=== PATIENT | female | born 1945 | race Caucasian/White ===

== ENCOUNTER 2016-07-31 03:54 | Observation (INO) | payer OTHER ==
[2016-07-31] MEDS ORDERED: NITROGLYCERIN 0.4 MG BTL SL PRN ×2 (04:06→06:40)
[2016-07-31] MEDS ORDERED: ASPIRIN 81 MG CHEWABLE TAB PO ONE (04:06)
[2016-07-31] MEDS ORDERED: NS 500 ML IV ONE (04:06)
--- NOTE | 2016-07-31 04:06 | EDPHY ---
H & P Stated Complaint: CP started 1 hr ago was seen by PCP today HPI/ROS: HPI CHIEF COMPLAINT: Chest discomfort HISTORY OF PRESENT ILLNESS: This patient very pleasant 71-year-old female no known significant history of coronary artery disease however does have a family history of coronary artery disease, presents to the emergency room 415 in the morning with chest pain. It is since resolved since arrival. Patient tells me that she woke up around 1:00 a.m. to urinate could not get back to sleep she developed a dull ache in the center of her chest epigastric region did not radiate anywhere was very intense that last approximately 45 minutes. She felt nauseous with this and was very diaphoretic. She tried to vomit but was unable to do so she decided to go and he piece of bread and this did give her some relief however the pain return. Due to the nausea sweating and discomfort in chest she decided come the emergency room. Upon arrival here she denies any chest pain or shortness of breath. She denies hemoptysis, or blood in her stool. Patient does tell me that she saw her primary care doctor today and was diagnosed with a viral syndrome as she has been somewhat sick with a cough and cold symptoms however no fever. She was given codeine cough medicine she did take this and after this developed this discomfort. Currently her pain is 0 /10. Past Medical History: Hypertension, hyperlipidemia Past Surgical History: Cholecystectomy Social History: Endorses alcohol use daily usually a glass of wine, denies tobacco use but does have a smoking history for 20 years, denies drug history Family History: Significant family history for coronary artery disease and MIs in her siblings ROS REVIEW OF SYSTEMS: A comprehensive 10 point review of systems is otherwise negative aside from elements mentioned in the history of present illness. Exam Constitutional triage nursing summary reviewed, vital signs reviewed, awake/ alert. Eyes normal conjunctivae and sclera, EOMI, PERRLA. HENT normal inspection, atraumatic, moist mucus membranes, no epistaxis, neck supple/ no meningismus, no raccoon eyes. Respiratory clear to auscultation bilaterally, normal breath sounds, no respiratory distress, no wheezing. Cardiovascular rate normal, regular rhythm, no murmur, no edema, distal pulses normal. Gastrointestinal soft, non-tender, no rebound, no guarding, normal bowel sounds, no distension, no pulsatile mass. Genitourinary no CVA tenderness. Musculoskeletal no midline vertebral tenderness, full range of motion, no calf swelling, no tenderness of extremities, no meningismus, good pulses, neurovascularly intact. Skin pink, warm, & dry, no rash, skin atraumatic. Neurologic awake, alert and oriented x 3, AAOx3, moves all 4 extremities equally, motor intact, sensory intact, CN II-XII intact, normal cerebellar, normal vision, normal speech. Psychiatric normal mood/affect. Heme/Lymph/Immune no lymphadenopathy. Differential diagnosis includes but is not limited to: ACS, atypical chest pain , pneumothorax, pneumonia, pulmonary embolism, aortic dissection, congestive heart failure, tumor, musculoskeletal pain, esophageal pain, GERD, peptic ulcer disease, pancreatitis Medical Decision Making: patient will have an IV established will obtain blood work, patient be placed on full cardiac/vascular sonographer, patient will need EKG and chest x-ray troponin. She will be given full-dose aspirin. Re-evaluation: EKG interpretation by me on record in [employer] system. Impression time of EKG 4:09 a.m., this is sinus rhythm rate of 76, no acute ST elevation appreciated no acute ST depression appreciated, T-waves are unremarkable. No signs of acute ischemia. ED x-ray chest one view: negative for acute cardiopulmonary disease. Lung marquez clear. Cardiac silhouette normal size. Image interpreted myself. [id number]: re-evaluation at this time this patient is resting comfortably she is chest pain-free. I spoke with the hospitalist service for admission. Spoke with Dr. Metz who accepts. Patient began full-dose aspirin. Troponin is negative EKG is nonischemic chest x-ray is unremarkable. Patient is resting comfortably with normal vital signs. She is agreeable for admission reason for admission for chest pain is risk factors which include her age, family history, hypertension, hyperlipidemia and smoking history. She is agreeable for admission EACU is appropriate. Source: Patient - Personal History Current Tetanus/Diphtheria Vaccine: Yes Current Tetanus Diphtheria and Acellular Pertussis (TDAP): Yes - Medical/Surgical History Hx Asthma: No Hx Chronic Respiratory Disease: No Hx Diabetes: No Hx Cardiac Disease: Yes Hx Renal Disease: No Hx Cirrhosis: No Hx Alcoholism: No Hx HIV/AIDS: No Hx Splenectomy or Spleen Trauma: No Other PMH: gallbladder surgery, left foot surgery, tonsils, HTN, hypothroidism, GERD - Social History Smoking Status: Never smoked Constitutional: Initial Vital Signs Temperature (C) 37.3 C 07/31/16 04:01 Heart Rate 84 07/31/16 04:01 Respiratory Rate 16 07/31/16 04:01 Blood Pressure 156/81 H 07/31/16 04:01 O2 Sat (%) 95 07/31/16 04:01 O2 Delivery Mode Room Air O2 (L/minute) 2 Allergies/Adverse Reactions: No Known Allergies Allergy (Unverified 07/31/16 03:57) Home Medications: Medication Instructions Recorded Ambien 07/31/16 Aspirin 81mg (*) 07/31/16 Ativan 07/31/16 CO Q-10 07/31/16 Celebrex 07/31/16 Citracal 07/31/16 Fish Oil 07/31/16 Flexeril 07/31/16 Hyzaar 100-12.5 Tablet 07/31/16 Lipitor 07/31/16 Multi-Vitamin Daily 07/31/16 Pepcid 07/31/16 Synthroid 07/31/16 Voltaren 07/31/16 Medical Decision Making - Data Points Laboratory Results: Laboratory Results 07/31/16 04:10 07/31/16 04:10 07/31/16 07/31/16 07/31/16 04:10 04:10 04:10 WBC 4.94 10^3/uL 10^3/uL (3.80-9.50) RBC 5.03 10^6/uL 10^6/uL (4.18-5.33) Hgb 15.2 g/dL g/dL (12.6-16.3) Hct 43.5 % % (38.0-47.0) MCV 86.5 fL fL (81.5-99.8) MCH 30.2 pg pg (27.9-34.1) MCHC 34.9 g/dL g/dL (32.4-36.7) RDW 12.2 % % (11.5-15.2) Plt Count 211 10^3/uL 10^3/uL (150-400) MPV 10.3 fL fL (8.7-11.7) Neut % (Auto) 49.9 % % (39.3-74.2) Lymph % (Auto) 36.6 % % (15.0-45.0) [place] % (Auto) 10.7 % % (4.5-13.0) Eos % (Auto) 2.2 % % (0.6-7.6) Baso % (Auto) 0.4 % % (0.3-1.7) Nucleat RBC Rel Count 0.0 % % (0.0-0.2) Absolute Neuts (auto) 2.46 10^3/uL 10^3/uL (1.70-6.50) Absolute Lymphs (auto) 1.81 10^3/uL 10^3/uL (1.00-3.00) Absolute Monos (auto) 0.53 10^3/uL 10^3/uL (0.30-0.80) Absolute Eos (auto) 0.11 10^3/uL 10^3/uL (0.03-0.40) Absolute Basos (auto) 0.02 10^3/uL 10^3/uL (0.02-0.10) Absolute Nucleated RBC 0.00 10^3/uL 10^3/uL (0-0.01) Immature Gran % 0.2 % % (0.0-1.1) Immature Gran # 0.01 10^3/uL 10^3/uL (0.00-0.10) PT 12.3 SEC SEC (12.0-15.0) INR 0.92 (0.83-1.16) APTT 24.5 SEC SEC (23.0-38.0) Sodium 139 mEq/L mEq/L (134-144) Potassium 3.9 mEq/L mEq/L (3.5-5.2) Chloride 104 mEq/L mEq/L (97-110) Carbon Dioxide 23 mEq/l mEq/l (22-31) Anion Gap 12 mEq/L mEq/L (8-16) BUN 17 mg/dL mg/dL (7-23) Creatinine 0.7 mg/dL mg/dL (0.6-1.0) Estimated GFR > 60 Glucose 127 mg/dL H mg/dL (70-100) Calcium 10.4 mg/dL mg/dL (8.5-10.4) Magnesium 1.8 mg/dL mg/dL (1.6-2.3) Total Bilirubin 0.6 mg/dL mg/dL (0.1-1.4) Conjugated Bilirubin 0.4 mg/dL mg/dL (0.0-0.5) Unconjugated Bilirubin 0.2 mg/dL mg/dL (0.0-1.1) AST 119 IU/L H IU/L (14-46) ALT 83 IU/L H IU/L (9-52) Alkaline Phosphatase 57 IU/L IU/L (38-126) Creatine Kinase 41 IU/L IU/L (0-156) CK-MB (CK-2) Fraction 0.31 ng/mL ng/mL (0-3.19) Troponin I < 0.012 ng/mL ng/mL (0-0.034) NT-Pro-B Natriuret Pep 52 pg/mL pg/mL (0-125) Total Protein 7.2 g/dL g/dL (6.3-8.2) Albumin 4.3 g/dL g/dL (3.5-5.0) Lipase 125.0 IU/L IU/L (23-300) Medications Given: Discontinued Medications Aspirin (Aspirin) 324 mg PO EDNOW ONE Stop: 07/31/16 04:07 Last Admin: 07/31/16 04:28 Dose: 324 mg Sodium Chloride (Ns) 500 mls @ 0 mls/hr IV ONCE ONE PRN Reason: As Directed Stop: 07/31/16 04:07 Last Admin: 07/31/16 04:28 Dose: 500 mls Departure - Departure Disposition: [facility] Inpatient Acute Clinical Impression: Chest pain Qualifiers: Chest pain type: unspecified Qualified Code(s): R07.9 - Chest pain, unspecified Condition: Fair Referrals: Lexi Schwab MD [Primary Care Provider] - As per Instructions
[2016-07-31 04:23] LABS: % IMMATURE GRANULYOCYTES 0.2 % (0.0-1.1); ABSOLUTE IMMATURE GRANULOCYTES 0.01 10^3/uL (0.00-0.10); ADD DIFF? NO; ADD MORPH? NO; ADD SCAN? NO; ATYPICAL LYMPHOCYTE FLAG 60 (0-99); FRAGMENT RBC FLAG 0 (0-99); HEMATOCRIT 43.5 % (38.0-47.0); HEMOGLOBIN 15.2 g/dL (12.6-16.3); LEFT SHIFT FLG 0 (0-99); LIPEMIA HEMOLYSIS FLAG 90 (0-99); MEAN CELL HEMOGLOBIN 30.2 pg (27.9-34.1); MEAN CELL HEMOGLOBIN CONCENTR. 34.9 g/dL (32.4-36.7); MEAN CELL VOLUME 86.5 fL (81.5-99.8); MEAN PLATELET VOLUME 10.3 fL (8.7-11.7); PLATELET CLUMPS FLAG 0 (0-99); PLATELET COUNT 211 10^3/uL (150-400); RED BLOOD CELL COUNT 5.03 10^6/uL (4.18-5.33); RED CELL DISTRIBUTION WIDTH 12.2 % (11.5-15.2)
[2016-07-31 04:34] LABS: ALANINE AMINOTRANSFERASE 83 IU/L (9-52); ALBUMIN 4.3 g/dL (3.5-5.0); ALKALINE PHOSPHATASE 57 IU/L (38-126); ANION GAP 12 mEq/L (8-16); ASPARTATE AMINOTRANSFERASE 119 IU/L (14-46); BILIRUBIN,TOTAL 0.6 mg/dL (0.1-1.4); BILIRUBIN-CONJUGATED 0.4 mg/dL (0.0-0.5); BILIRUBIN-UNCONJUGATED 0.2 mg/dL (0.0-1.1); CALCIUM 10.4 mg/dL (8.5-10.4); CARBON DIOXIDE 23 mEq/l (22-31); CHLORIDE 104 mEq/L (97-110); CREATININE 0.7 mg/dL (0.6-1.0); GLOMERULAR FILTRATION RATE > 60; GLUCOSE 127 mg/dL (70-100); MAGNESIUM 1.8 mg/dL (1.6-2.3); POTASSIUM 3.9 mEq/L (3.5-5.2); SODIUM 139 mEq/L (134-144); TOTAL PROTEIN 7.2 g/dL (6.3-8.2)
[2016-07-31 04:38] LABS: PROTIME(PATIENT) 12.3 SEC (12.0-15.0)
[2016-07-31 04:39] LABS: APTT 24.5 SEC (23.0-38.0); INR 0.92 (0.83-1.16)
[2016-07-31 04:46] LABS: CREATINE KINASE-MB FRACTION 0.31 ng/mL (0-3.19); TROPONIN I < 0.012 ng/mL (0-0.034)
--- NOTE | 2016-07-31 04:49 | CPEKG ---
Heart Rate: 76 RR Interval: 789 P-R Interval: 144 QRSD Interval: 90 QT Interval: 368 QTC Interval: 414 P [place]: 81 QRS [place]: -17 T Wave [place]: 50 EKG Severity - BORDERLINE ECG - EKG Impression: SINUS RHYTHM EKG Impression: PROBABLE LEFT ATRIAL ABNORMALITY EKG Impression: BORDERLINE LEFT AXIS DEVIATION Electronically Signed By: Guanaco Cole 01-Aug-2016 12:15:20
--- NOTE | 2016-07-31 06:29 | PDCPHP ---
History and Physical Chief Complaint: chest pain - History of Present Illness This is a 71 yo,White,F With history of hypertension extensive family history for coronary artery disease who presented to the emergency department with chest pain. Patient developed what she describes as a viral illness on Friday. She reports congestion and general malaise. She was unable to sleep last night and around 0200 today she took some codeine cough medicine. After taking the medicines she developed what she describes as a 6/10 dull substernal and epigastric pain. This was associated with sweating and nausea. She tried eating some bread which is worsened her nausea. SHe attempted to vomit but was unable to. She then drank half a glass of milk which she thinks helped. In the emergency department she had decreased pain but had a recurrent bout. Currently she chest pain-free. She denies any shortness of breath. She tells me her last stress test was done by Dr. Mustafa 3-4 years ago. History Information - Allergies/Home Medication List Allergies/Adverse Reactions: No Known Allergies Allergy (Unverified 07/31/16 03:57) Home Medications: Ambien 07/31/16 [Last Taken Unknown] Aspirin 81mg (*) 07/31/16 [Last Taken Unknown] Ativan 07/31/16 [Last Taken Unknown] CO Q-10 07/31/16 [Last Taken Unknown] Celebrex 07/31/16 [Last Taken Unknown] Citracal 07/31/16 [Last Taken Unknown] Fish Oil 07/31/16 [Last Taken Unknown] Flexeril 07/31/16 [Last Taken Unknown] Hyzaar 100-12.5 Tablet 07/31/16 [Last Taken Unknown] Lipitor 07/31/16 [Last Taken Unknown] Multi-Vitamin Daily 07/31/16 [Last Taken Unknown] Pepcid 07/31/16 [Last Taken Unknown] Synthroid 07/31/16 [Last Taken Unknown] Voltaren 07/31/16 [Last Taken Unknown] I have personally reviewed and updated: family history, medical history, social history, surgical history - Past Medical History hypertension Additional medical history: Hypothyroidism, insomnia - Surgical History Reports: cholecystectomy Additional surgical history: podiatric surgery - Family History Positive for: CAD ( her sister of heart disease at age 54 her father lived into his 80s but has a bypass surgery in his 60s) - Social History Smoking Status: Never smoked Alcohol Use: None Review of Systems ROS: 10pt was reviewed & negative except for what was stated in HPI & below Constitutional: Reports: malaise. Denies: fever EENMT: Reports: no symptoms Respiratory: Reports: no symptoms Genitourinary: Reports: no symptoms Muscolosketal: Reports: no symptoms Skin: Reports: no symptoms Neurological: Reports: no symptoms Hematologic/Lymphatic: Reports: no symptoms Immunologic/Allergy: Reports: no symptoms OMER Risk Evaluation age greater or equal to 65: yes greater or equal to 3 CAD risk factors: no known CAD(stenosis greater or eqaul to 50%): no ASA use in past 7 days: no severe angina(greater or equal to 2 episodes in 24hrs): no EKG ST changes greater or equal to 0.5mm: no positive cardiac marker: no Total Score: 1 OMER Score: 4.7% risk Physical Exam Temp Pulse Resp BP Pulse Ox 37.3 C 71 20 140/71 H 95 07/31/16 04:01 07/31/16 06:18 07/31/16 06:18 07/31/16 06:18 07/31/16 06:18 O2 (L/minute) 2 Constitutional: no apparent distress, appears nourished, not in pain Eyes: PERRL, anicteric sclera, EOMI Ears, Nose, Mouth, Throat: moist mucous membranes, hearing normal, ears appear normal, no oral mucosal ulcers Cardiovascular: regular rate and rhythym, no murmur, rub, or gallop, other ( no tenderness to palpation over the anterior chest wall or sternum), No JVD, No edema Respiratory: no respiratory distress, no rales or rhonchi, clear to auscultation Gastrointestinal: normoactive bowel sounds, soft, non-tender abdomen, no palpable masses Genitourinary: no bladder fullness, no bladder tenderness Skin: warm, normal color, no rashes or abrasions, no fluctuance, no induration, No mottled Musculoskeletal: full muscle strength, no muscle tenderness, normal joint ROM, no joint effusions Neurologic: AAOx3, CN II-XII Intact, No facial droop Psychiatric: interacting appropriately, not anxious, not encephalopathic, thought process linear Lab Data & Imaging Review 07/31/16 04:10 07/31/16 04:10 WBC 4.94 10^3/uL (3.80-9.50) 07/31/16 04:10 RBC 5.03 10^6/uL (4.18-5.33) 07/31/16 04:10 Hgb 15.2 g/dL (12.6-16.3) 07/31/16 04:10 Hct 43.5 % (38.0-47.0) 07/31/16 04:10 MCV 86.5 fL (81.5-99.8) 07/31/16 04:10 MCH 30.2 pg (27.9-34.1) 07/31/16 04:10 MCHC 34.9 g/dL (32.4-36.7) 07/31/16 04:10 RDW 12.2 % (11.5-15.2) 07/31/16 04:10 Plt Count 211 10^3/uL (150-400) 07/31/16 04:10 MPV 10.3 fL (8.7-11.7) 07/31/16 04:10 Neut % (Auto) 49.9 % (39.3-74.2) 07/31/16 04:10 Lymph % (Auto) 36.6 % (15.0-45.0) 07/31/16 04:10 [place] % (Auto) 10.7 % (4.5-13.0) 07/31/16 04:10 Eos % (Auto) 2.2 % (0.6-7.6) 07/31/16 04:10 Baso % (Auto) 0.4 % (0.3-1.7) 07/31/16 04:10 Nucleat RBC Rel Count 0.0 % (0.0-0.2) 07/31/16 04:10 Absolute Neuts (auto) 2.46 10^3/uL (1.70-6.50) 07/31/16 04:10 Absolute Lymphs (auto) 1.81 10^3/uL (1.00-3.00) 07/31/16 04:10 Absolute Monos (auto) 0.53 10^3/uL (0.30-0.80) 07/31/16 04:10 Absolute Eos (auto) 0.11 10^3/uL (0.03-0.40) 07/31/16 04:10 Absolute Basos (auto) 0.02 10^3/uL (0.02-0.10) 07/31/16 04:10 Absolute Nucleated RBC 0.00 10^3/uL (0-0.01) 07/31/16 04:10 Immature Gran % 0.2 % (0.0-1.1) 07/31/16 04:10 Immature Gran # 0.01 10^3/uL (0.00-0.10) 07/31/16 04:10 PT 12.3 SEC (12.0-15.0) 07/31/16 04:10 INR 0.92 (0.83-1.16) 07/31/16 04:10 APTT 24.5 SEC (23.0-38.0) 07/31/16 04:10 Sodium 139 mEq/L (134-144) 07/31/16 04:10 Potassium 3.9 mEq/L (3.5-5.2) 07/31/16 04:10 Chloride 104 mEq/L (97-110) 07/31/16 04:10 Carbon Dioxide 23 mEq/l (22-31) 07/31/16 04:10 Anion Gap 12 mEq/L (8-16) 07/31/16 04:10 BUN 17 mg/dL (7-23) 07/31/16 04:10 Creatinine 0.7 mg/dL (0.6-1.0) 07/31/16 04:10 Estimated GFR > 60 07/31/16 04:10 Glucose 127 mg/dL (70-100) H 07/31/16 04:10 Calcium 10.4 mg/dL (8.5-10.4) 07/31/16 04:10 Magnesium 1.8 mg/dL (1.6-2.3) 07/31/16 04:10 Total Bilirubin 0.6 mg/dL (0.1-1.4) 07/31/16 04:10 Conjugated Bilirubin 0.4 mg/dL (0.0-0.5) 07/31/16 04:10 Unconjugated Bilirubin 0.2 mg/dL (0.0-1.1) 07/31/16 04:10 AST 119 IU/L (14-46) H 07/31/16 04:10 ALT 83 IU/L (9-52) H 07/31/16 04:10 Alkaline Phosphatase 57 IU/L (38-126) 07/31/16 04:10 Creatine Kinase 41 IU/L (0-156) 07/31/16 04:10 CK-MB (CK-2) Fraction 0.31 ng/mL (0-3.19) 07/31/16 04:10 Troponin I < 0.012 ng/mL (0-0.034) 07/31/16 04:10 NT-Pro-B Natriuret Pep 52 pg/mL (0-125) 07/31/16 04:10 Total Protein 7.2 g/dL (6.3-8.2) 07/31/16 04:10 Albumin 4.3 g/dL (3.5-5.0) 07/31/16 04:10 Lipase 125.0 IU/L (23-300) 07/31/16 04:10 Visualized and Interpreted Chest x-ray results: Yes Chest X-Ray results: no infiltrate, normal, normal heart size Visualized and Interpreted EKG results: Yes EKG Interpretation: Positive for: normal sinsus rhythm (76 bpm). Negative for: Q waves, ST elevation, ST depression Assessment and Plan Assessment: This is a 71 yo,White,F With history of hypertension and extensive family history for coronary artery disease who presented to the emergency department with: # Chest pain most likely GI in origin and related to codeine. Her story sounds atypical for acute coronary syndrome. Her initial EKG and troponin are negative. Given the patient's family history for coronary artery disease the patient will be placed in observation to further evaluate for ACS. # hypertension # transaminitis of unclear etiology. The patient denies any alcohol use. This could possibly due to her viral illness and nausea # hypothyroidism # suspected viral upper respiratory illness Plan: The patient will be placed in observation due to concerns for Acute Coronary Syndrome. * continuous telemetry to monitor for ST segment changes * monitor vital signs every 4 hours * morphine sulfate IV and nitroglycerin sublingual as needed for chest pain * repeat EKG in 6 hours to monitor for changes that would suggest ischemia or infarction * repeat EKG as needed for recurrent chest pain * repeat troponin at 8:00 a.m. * Arrange for inpatient versus out patient stress test with Dr. Mustafa once chest pain is resolved, repeat troponin and EKG are negative, and the patient is symptom free for greater than 6 hours from the onset of pain * If the patient develops dynamic EKG changes consistent with ischemia/ infarction, troponin elevation, or has an abnormal stress test the patient will be treated for acute coronary syndrome as clinically indicated. * she should have repeat LFTs drawn in 2-4 weeks to ensure transaminitis is improving
[2016-07-31] MEDS ORDERED: ONDANSETRON 4 MG/2 ML VIAL IVP PRN (06:40)
[2016-07-31] MEDS ORDERED: ACETAMINOPHEN 325 MG TAB PO PRN (06:40)
[2016-07-31] MEDS ORDERED: ONDANSETRON DISINTEGRATING 4 MG TAB PO PRN (06:40)
--- NOTE | 2016-07-31 08:48 | CPEKG ---
Heart Rate: 65 RR Interval: 923 P-R Interval: 144 QRSD Interval: 92 QT Interval: 416 QTC Interval: 433 P [place]: 65 QRS [place]: -15 T Wave [place]: 42 EKG Severity - NORMAL ECG - EKG Impression: SINUS RHYTHM Electronically Signed By: Guanaco Cole 31-Jul-2016 09:21:11
[2016-07-31] MEDS ORDERED: ASPIRIN EC 325 MG TAB PO ONE (10:41)
[2016-07-31] MEDS ORDERED: TEMAZEPAM 15 MG CAP PO PRN (10:41)
[2016-07-31] MEDS ORDERED: DIAZEPAM 5 MG TAB PO ONE (10:41)
[2016-07-31] MEDS ORDERED: diphenhydrAMINE 25 MG CAP PO ONE (10:41)
--- NOTE | 2016-07-31 10:41 | PDCARST ---
CAR Stress Test Results Type of Stress Test: TM stress test Indication: cp Description of Procedure: After informed consent was obtained, pt was established to ECG, bp, HR and oximetry monitoring. At b/l, pt has SR, BP 140/72 , HR 66, and normal oximetry. Pt exercised for a total of 8:22. Pt denied any cp with exertion. There were frequent PVC singlets. There was 2 mm horizontal STD at peak exercise. There OR elevation in aVR. Impression: DTS: +8- (2)5= -2. Intermediate risk stress test. NUZHAT in aVR. Frequent PVCs Conclusion: Recommend cardiac cath for further risk stratification.
--- NOTE | 2016-07-31 11:27 | GCON ---
[f rep st] CONSULTATION CARDIOLOGY CONSULTATION DATE OF CONSULTATION: 07/31/2016 HPI: The patient a 71-year-old female with a past medical history significant for hypertension and dyslipidemia that are both treated with medical therapy, who is admitted for an episode of chest allison n. She reports pat some sort of viral illness that consisted of a sore throat and cough sym ptoms starting Friday, which was 3 or 4 days ago. She awoke at 2:00 a.m., unable to sleep, and de cided to take some cough syrup with codeine. After taking medication, she noted a 6/10 dull subster nal and epigastric discomfort that radiated linearly. She noted no anterior chest discomfort, radia tion into her arm. She noted nausea and diaphoresis. She tried to go back to sleep, but symptoms p ersisted. She, therefore, decided to get up and eat some bread thinking that may help relieve the s ymptoms. She did note some temporary improvement for about 5 minutes, but then the symptoms recurre d at the above-stated intensity. She tried some milk, which did also improve her discomfort. But, due to the persistence of her symptoms, she presented to the emergency department for further evalua tion. After arrival to the emergency department, she became pain free. She proceeded to a treadmil l stress test, which was very abnormal with a horizontal ST depression, as well as ST elevations in AVR. PAST MEDICAL HISTORY: Hypertension, dyslipidemia, hypothyroidism, and insomnia. PAST SURGICAL HISTORY: Bone spur removal, cholecystectomy, deviated septum surgery, and tonsillecto my. MEDICATIONS: Outpatient medications: These include levothyroxine, famotidine, Voltaren gel, multiv itamin, Hyzaar, atorvastatin, Celebrex, omega-3 fatty acids, Flexeril, lorazepam, aspirin, and zolpi dem. ALLERGIES: No known drug allergies. FAMILY HISTORY: Sister had an GA and at age 54. Brother had a stent. Another brother had a T IA. SOCIAL HISTORY: The patient is . She was a previous smoker, but quit 34 years ago. She den ies any significant alcohol use. REVIEW OF SYSTEMS: As per HPI. A complete 10-point review of systems was obtained and is negative except for what is dictated. PHYSICAL EXAM: VITAL SIGNS: BP of 145/70, heart rate 66, respirations 20, O2 saturation 96% on rex m air. Temperature of 98.4 degrees Fahrenheit. GENERAL: She is a very pleasant female in no appar ent distress. HEENT: Eyes are LEIDY. Sclerae are anicteric. Mucous membranes are moist. HEART: Regular rate and rhythm. LUNGS: Clear. ABDOMEN: Soft. SKIN: Warm and dry. PSYCH: Normal mood and affect. NEURO: There are no focal deficits detected. DATABASE: A 12-lead ECG, personally interpreted, demonstrates sinus rhythm with RSR prime pattern. Baseline diffuse ST-T wave abnormalities. Chest x-ray demonstrates atherosclerotic aorta. Otherwise, clear lung marquez. Database from our office: Patient had an echo on 04/10/2015 which showed an EF 65%, pseudo normaliz ed LV diastolic function, and trace MR and trace MS. A 30-day event monitor showed nonsustained idi oventricular rhythm. Nonsustained SVT. IMPRESSION AND PLAN: The patient is a 71-year-old female who presents with chest pain syndrome. 1. Chest pain, somewhat atypical, but she did have acute ST abnormalities upon arrival. With stres s testing, she had very significant EKG changes. PVCs that did not ablate with exertion as well as ST-elevation during exercise. We reviewed options and the patient is agreeable to a left heart cath eterization for further evaluation. Risks, benefits, and alternatives reviewed with the patient. 2. Hypertension. Blood pressure is suboptimally controlled. We will plan for her to follow up as an outpatient if it continues to be elevated. 3. Dyslipidemia. This is treated and followed by Dr. Schwab. 4. More recommendations to follow further testing. /[id number]/MODL
[2016-07-31 11:34] LABS: CHOLESTEROL 135 mg/dL (140-220); CHOLESTEROL/HDL RATIO 2.08 RATIO (1.00-4.44); HIGH DENSITY LIPOPROTEIN 65 mg/dL (40-85); LOW DENSITY LIPOPROTEIN 52 mg/dL (80-100); MAGNESIUM 1.9 mg/dL (1.6-2.3); NON-HIGH DENSITY LIPOPROTEIN 70 mg/dL (90-129); TRIGLYCERIDE 90 mg/dL (35-135); VERY LOW DENSITY LIPOPROTEINS 18 mg/dL (8-25)
[2016-07-31 11:49] VITALS: RESP 16; TEMP 98.1
[2016-07-31] MEDS ORDERED: HEPARIN 10,000 UNIT/10 ML MDV ONE (13:57)
[2016-07-31] MEDS ORDERED: VERAPAMIL 5 MG/2 ML VIAL ONE (13:57)
[2016-07-31] MEDS ORDERED: LIDOCAINE 1% 30 ML SDV ONE (13:57)
[2016-07-31] MEDS ORDERED: fentaNYL 100 MCG/2 ML INJ ONE (13:57)
[2016-07-31] MEDS ORDERED: MIDAZOLAM 2 MG/2 ML VIAL ONE (13:57)
[2016-07-31] MEDS ORDERED: IOPAMIDOL (ISOVUE 370) 100 ML BTL IV ONE ×2 (13:58→14:59)
[2016-07-31] MEDS ORDERED: FAMOTIDINE 20 MG TAB PO ONE (14:00)
[2016-07-31] MEDS ORDERED: CYCLOBENZAPRINE 10 MG TAB PO PRN (14:25)
[2016-07-31] MEDS ORDERED: ZOLPIDEM TARTRATE 5 MG TAB PO PRN (14:25)
[2016-07-31] MEDS ORDERED: LORazepam 1 MG TAB PO PRN (14:25)
[2016-07-31] MEDS ORDERED: FAMOTIDINE 20 MG TAB PO PRN (14:25)
[2016-07-31] MEDS ORDERED: Diclofenac Sodium [Voltaren Gel (*)] 1 APP TP PRN (14:25)
[2016-07-31] MEDS ORDERED: LEVOTHYROXINE 75 MCG TAB PO SCH (14:30)
--- NOTE | 2016-07-31 14:35 | SUROPNOTE ---
JT Operative Report - Surgery Date of Procedure: 07/31/16 Indication: This patient is a 71 year old woman, with known coronary disease on the basis of calcium score, hypertension, hyperlipidemia, strong family history of coronary disease, and history of symptomatic PVCs, presenting after an episode of resting chest pain early this morning. The pain was substernal, dull , rated 6/10 in severity, and associated with diaphoresis and nausea. The patient presented to the emergency department and was subsequently admitted to the hospital for further evaluation. Treadmill exercise stress test was abnormal ; the patient demonstrated 2mm horizontal ST depression and ST elevation in aVR at peak stress. Left heart catheterization indicated secondary to [place] Cardiovascular class IV angina and intermediate risk non-invasive testing. Procedures performed: 1. Left heart catheterization with left ventricular and selective coronary angiography. Description of procedure: Description, risks, benefits and alternatives were discussed in detail. Informed consent was obtained. The patient was brought to the catheterization laboratory where a timeout was performed. The right wrist was sterilely prepped and draped. 2% lidocaine utilized for local anesthetic. A 5/6-Nigerian slender hemostatic sheath placed right radial artery utilizing micropuncture technique. Intraarterial verapamil and intravenous heparin was administered. Diagnostic coronary angiography performed with 6-Nigerian, Misa left-3.5 and Misa right -4 catheter. All catheters were passed over a 0.035 guidewire. Pigtail catheter was then utilized for left heart catheterization and left ventricular angiography. Arterial sheath was removed and TR band was placed. Findings: 1. Hemodynamics: Aortic pressure 152/68, mean of 104, left ventricular pressure 141/4/18 end-diastolic. There was no significant pull back gradient across the aortic valve. 2. Left ventricle: The left ventricle appears normal in size. Left ventricle is normal shape. Segmental wall motion is normal with an ejection fraction of 75 %. There are no filling defects or significant mitral regurgitation. The aortic root and ascending aorta appears normal, there is no dissection or aneurysm formation. 3. Coronary angiography: Left main: The left main is a moderate-length bifurcating vessel of moderate diameter, free of disease. 4. Left anterior descending: This is a moderately large vessel continuing around the apex. There is a large first diagonal branch and moderate second diagonal branch. The left anterior descending contains mid-vessel mild calcified disease and otherwise minimal luminal irregularities. 5. Circumflex: The circumflex is a small non-dominant vessel, which gives rise to a moderate-size high-lateral branch and a moderate obtuse marginal branch. Minimal disease. 6. Right coronary: Large dominant vessel. Large PDA, large posterolateral. Minimal disease. Overall Impression: 1. Minimal coronary artery disease. 2. Normal left ventricular systolic function. 3. Non-cardiac chest pain. Plan: 1. Risk modification and statin therapy. 2. Follow up with Tesha Schwab to evaluate other etiologies of chest pain. Portions of this report were documented by a medical social consultant. I have reviewed this report and agree with the documentation. Report scribed for Dr. Rolando Mustafa. Report scribed by Silvai Mckeon.
--- NOTE | 2016-07-31 17:22 | GDS ---
DISCHARGE DIAGNOSIS: Chest pain with negative catheterization. HOSPITAL COURSE: Please see admission history and physical by Dr. Metz. The patient presented wit h chest pain and dizziness after having some codeine for a viral syndrome and cough. She presented. She had negative troponins. She underwent a stress test with diffuse ST depressions with exercise. She underwent angiogram today, which showed diffuse [id number] coronary disease of a relati vely mild nature. She is on a statin. She is discharged home when cleared from post cath procedure s. /[id number]/MODL
[2016-07-31 17:57] VITALS: BP 130/69; PULSE 72; O2SAT 92
[2016-07-31] MEDS ORDERED: ASPIRIN 81 MG CHEWABLE TAB PO SCH (21:00)
[2016-07-31] MEDS ORDERED: ATORVASTATIN CALCIUM 10 MG TAB PO SCH (21:00)
[2016-08-01] MEDS ORDERED: MULTIVITAMINS 1 EACH TAB PO SCH (09:00)
[2016-08-01] MEDS ORDERED: Herbals/Supplements -Info Only PO SCH (09:00)
[2016-08-01] MEDS ORDERED: OMEGA-3 FATTY ACIDS 1,000 MG CAP PO SCH (09:00)
[2016-08-01] MEDS ORDERED: LOSARTAN/HCTZ 50/12.5 1 TAB PO SCH (09:00)
== END 2016-07-31 19:36 | disposition home or self-care (01) ==
LOC: F1N 06:31
PROVIDERS: ADMIT Family Medicine; ATTEND Internal Medicine
DX: R07.89 Other chest pain (principal); I25.10 Atherosclerotic heart disease of native coronary artery without angina pectoris; R74.0 Nonspecific elevation of levels of transaminase and lactic acid dehydrogenase [LDH]; E78.5 Hyperlipidemia, unspecified; I10 Essential (primary) hypertension; E03.9 Hypothyroidism, unspecified; K21.9 Gastro-esophageal reflux disease without esophagitis; G47.00 Insomnia, unspecified; Z87.891 Personal history of nicotine dependence; Z82.49 Family history of ischemic heart disease and other diseases of the circulatory system
CPT/HCPCS: 71010; 93005; 93017; 93458; G0378; J1644; J2250; J3010; Q9967

== ENCOUNTER → 2016-11-01 | Outpatient (CLI) | payer OTHER | LOC: FIMAGING 09:49 | PROVIDERS: ATTEND Internal Medicine | DX: Z12.31 Encounter for screening mammogram for malignant neoplasm of breast (principal) | CPT/HCPCS: G0202 ==

== ENCOUNTER → 2017-11-25 | Outpatient (CLI) | payer OTHER | LOC: FIMAGING 10:11 | PROVIDERS: ATTEND Internal Medicine | DX: Z12.31 Encounter for screening mammogram for malignant neoplasm of breast (principal) ==

== ENCOUNTER 2018-03-08 13:05 | Emergency (ER) | payer OTHER ==
--- NOTE | 2018-03-08 14:16 | EDPHY ---
H & P Time Seen by Provider: 03/08/18 14:15 HPI/ROS: Chief complaint. Fell on back HPI. 72-year-old female presents emergency department low back pain. 2 days ago she tripped and fell and landed on her bottom. Initially she had pain to both hips and both sides of her lower back. Now it is mainly on the left side. Hurts to move and bend over. She has not noticed any blood in her urine. Did not strike her head or lose consciousness. No neck, chest abdominal pain. No trouble breathing. Patient has been using Aleve and lidocaine patch. ROS 10 systems were reviewed and negative with the exception of the elements mentioned in the history of present illness Past Medical/Surgical History: Cholecystectomy, hypertension, hypothyroidism, GERD Social History: , nonsmoker, no alcohol Smoking Status: Never smoked Physical Exam: General Appearance: Alert well-developed female moderate distress vital signs are stable Eyes: Pupils equal and round no pallor or injection. ENT, Mouth: Mucous membranes are moist. Respiratory: There are no retractions, lungs are clear to auscultation. Cardiovascular: Regular rate and rhythm. Gastrointestinal: Abdomen is soft and nontender, no masses, bowel sounds normal. Neurological: Awake and alert, sensory and motor exams grossly normal. Skin: Warm and dry, no rashes. Musculoskeletal: Neck is supple nontender. Pain is more in the left flank and lower left ribs. No T, L, S spine tenderness no hip tenderness Extremities symmetrical, full range of motion. Psychiatric: Patient is oriented X 3, there is no agitation. Constitutional: Initial Vital Signs Temperature (C) 36.7 C 03/08/18 13:17 Heart Rate 77 03/08/18 13:17 Respiratory Rate 17 03/08/18 13:17 Blood Pressure 173/89 H 03/08/18 13:17 O2 Sat (%) 97 03/08/18 13:17 O2 Delivery Mode Room Air Allergies/Adverse Reactions: No Known Allergies Allergy (Verified 03/08/18 13:16) Home Medications: Medication Instructions Recorded Aspirin [Aspirin 81mg (*)] 81 mg PO HS 07/31/16 Atorvastatin Calcium [Lipitor 10 10 mg PO HS 07/31/16 mg (*)] Famotidine [Pepcid 20 MG (*)] 20 mg PO DAILY PRN 07/31/16 Herbals/Supplements -Info Only 1 ea PO DAILY 07/31/16 LORazepam [Ativan (*)] 1 mg PO HS PRN 07/31/16 Levothyroxine [Synthroid 75 mcg 75 mcg PO DAILY06 07/31/16 (*)] Losartan/Hctz 50/12.5 [Hyzaar 1 tab PO DAILY 07/31/16 50/12.5MG (*)] Multivitamins [Multivitamin (*)] 1 each PO DAILY 07/31/16 [place]-3 Fatty Acids [Fish Oil 1000 1,000 mg PO DAILY 07/31/16 mg (*)] Zolpidem Tartrate [Ambien 5MG (*)] 5 mg PO HS PRN 07/31/16 celeCOXIB [Celebrex (*)] 200 mg PO DAILY PRN 07/31/16 Hydrocodone/APAP 5/325 [[place] 1 each PO Q4-6PRN PRN #10 tab 03/08/18 5/325 (*)] Medical Decision Making - Diagnostics Imaging Results: Chest x-ray and pelvis x-ray interpreted by me is normal ED Course/Re-evaluation: Urine dip has a few red blood cells but no significant hematuria Re-evaluation 3:25 p.m. Patient is stable. She and I discussed imaging and lab results we discussed treatment plan and including criteria for return importance of follow-up and further evaluation. She expresses understanding and agreement Differential Diagnosis: Considered rib fracture, pneumothorax, renal contusion, pelvic fracture - Data Points Laboratory Results: 03/08/18 14:30 Urine Color YELLOW Urine Appearance CLEAR Urine pH 6.0 (5.0-7.5) Ur Specific [place] 1.021 (1.002-1.030) Urine Protein NEGATIVE (NEGATIVE) Urine Ketones NEGATIVE (NEGATIVE) Urine Blood 1+ H (NEGATIVE) Urine Nitrate NEGATIVE (NEGATIVE) Urine Bilirubin NEGATIVE (NEGATIVE) Urine Urobilinogen 2.0 EU H EU (0.2-1.0) Ur Leukocyte Esterase NEGATIVE (NEGATIVE) Urine RBC 3-5 /hpf H /hpf (0-3) Urine WBC 1-3 /hpf /hpf (0-3) Ur Epithelial Cells NONE SEEN /lpf /lpf (NONE-1+) Urine Mucus TRACE /lpf /lpf (NONE-1+) Urine Glucose NEGATIVE (NEGATIVE) Departure - Departure Disposition: Home, Routine, Self-Care Clinical Impression: Low back pain Qualifiers: Chronicity: acute Back pain laterality: left Sciatica presence: without sciatica Qualified Code(s): M54.5 - Low back pain Condition: Good Instructions: Low Back Strain (ED) Additional Instructions: Continue to use lidocaine patch for pain control. Apply heat to sore area of your back. Aleve or ibuprofen for pain. Hydrocodone in addition if necessary for pain Activity as tolerated re check in 2-3 days for continuing symptoms Referrals: Lexi Schwab MD [Primary Care Provider] - 2-3 days, if not improved Prescriptions: Hydrocodone/APAP 5/325 [[place] 5/325 (*)] 1 each PO Q4-6PRN PRN #10 tab PRN Reason: Pain, Moderate
[2018-03-08 15:57] VITALS: BP 118/71
== END 2018-03-08 15:57 | disposition home or self-care (01) ==
DX: M54.42 Lumbago with sciatica, left side (principal)

== ENCOUNTER → 2018-09-01 | Outpatient (CLI) | payer OTHER | LOC: FIMAGING 09:03 | PROVIDERS: ATTEND Internal Medicine | DX: N83.292 Other ovarian cyst, left side (principal); R93.89 Abnormal findings on diagnostic imaging of other specified body structures; Z78.0 Asymptomatic menopausal state ==

== ENCOUNTER → 2018-09-03 | Outpatient (CLI) | payer OTHER | LOC: FIMAGING 10:51 | PROVIDERS: ATTEND Nurse Practitioner Adult Health | DX: Z13.820 Encounter for screening for osteoporosis (principal); M85.89 Other specified disorders of bone density and structure, multiple sites; Z78.0 Asymptomatic menopausal state ==

== ENCOUNTER → 2018-11-26 | Outpatient (CLI) | payer OTHER | LOC: FIMAGING 11:14 ==